=== PATIENT | male | born 1945 | race Caucasian/White ===

== ENCOUNTER 2017-09-09 09:42 | Emergency (ER) | payer MEDICARE, BC ==
[2017-09-09 10:13] VITALS: BP 159/82
[2017-09-09] MEDS ORDERED: Sodium Chloride 0.9% 10 ML Syringe FLUSH PRN (10:19)
[2017-09-09] MEDS ORDERED: HYDROmorphone 1 MG/ML Syringe IVPUSH ONE (10:19)
[2017-09-09 11:07] LABS: CHLORIDE,CL 106 mmol/L (98-107); SODIUM,NA 141 mmol/L (136-145)
--- NOTE | 2017-09-09 11:07 | EDM.PDOC ---
ED HPI GENERAL MEDICAL PROBLEM - General Chief Complaint: Lower Extremity Injury/Pain Time Seen by Provider: 09/09/17 09:42 Source of Information: Reports: Patient, EMS History Limitations: Reports: No Limitations - History of Present Illness INITIAL COMMENTS - FREE TEXT/NARRATIVE: Pt. slipped on ice while walking outside, outwardly turning his R foot and landing on his backside. Denies striking head or injuring neck during the fall. No LOC. EMS was summoned. Pt. only complaint is that of severe R distal lower leg pain. States that he did not have any chest pain or lightheadedness prior to the fall. Onset: Today Location: Reports: Lower Extremity, Right Severity: Severe Right Ankle Pain Score (Numeric/FACES): 8 - Related Data Allergies Allergy/AdvReac Type Severity Reaction Status Date / Time Cephalosporins Allergy Severe Anaphylactic Verified 09/09/17 10:07 Shock Sulfa (Sulfonamide Allergy Cannot Verified 09/09/17 10:07 Antibiotics) Remember Home Meds: Home Meds Furosemide [Lasix] 20 mg PO DAILY 06/08/15 [History] Simvastatin [Zocor] 20 mg PO BEDTIME 06/08/15 [History] Cholecalciferol (Vitamin D3) [Vitamin D3] 1,000 unit PO DAILY 04/03/16 [History] Multivitamin [Multivitamins] 1 each PO DAILY 04/03/16 [History] metFORMIN [Glucophage] 1 tab PO ASDIRECTED 04/03/16 [History] Past Medical History Cardiovascular History: Reports: High Cholesterol, Hypertension Psychiatric History: Reports: Anxiety, Other (See Below) Other Psychiatric History: History of anxiety symptoms in February 2015 Dermatologic History: Reports: Cellulitis, Other (See Below) Other Dermatologic History: History of cellulitis a couple times. - Past Surgical History Musculoskeletal Surgical History: Reports: Hip Replacement, Knee Replacement Social & Family History - Tobacco Use Smoking Status *Q: Never Smoker Years of Tobacco use: 10 Second Hand Smoke Exposure: Yes - Alcohol Use Days Per Week of Alcohol Use: 1 Number of Drinks Per Day: 0 Total Drinks Per Week: 0 - Recreational Drug Use Recreational Drug Use: No Review of Systems - Review of Systems Review Of Systems: See Below Constitutional: Reports: No Symptoms Eyes: Reports: No Symptoms Ears: Reports: No Symptoms Nose: Reports: No Symptoms Mouth/Throat: Reports: No Symptoms Respiratory: Reports: No Symptoms Cardiovascular: Reports: No Symptoms GI/Abdominal: Reports: No Symptoms Genitourinary: Reports: No Symptoms Musculoskeletal: Reports: Leg Pain Skin: Reports: No Symptoms Neurological: Reports: No Symptoms Psychiatric: Reports: No Symptoms ED EXAM, GENERAL - Physical Exam Exam: See Below Exam Limited By: No Limitations General Appearance: Alert, WD/WN, No Apparent Distress Head: Atraumatic, Normocephalic Neck: Normal Inspection, Supple, Non-Tender, Full Range of Motion Respiratory/Chest: No Respiratory Distress, Lungs Clear, Normal Breath Sounds, No Accessory Muscle Use, Chest Non-Tender Cardiovascular: Normal Peripheral Pulses, Regular Rate, Rhythm, No Edema, No Gallop, No JVD, No Murmur, No Rub GI/Abdominal: Normal Bowel Sounds, Soft, Non-Tender, No Organomegaly, No Distention, No Abnormal Bruit, No Mass (Male) Exam: Deferred Rectal (Males) Exam: Deferred Back Exam: Normal Inspection, Full Range of Motion, NT Extremities: Normal Inspection, No Pedal Edema, Normal Capillary Refill, Other ( Pain/deformity/crepitus to R ankle) Neurological: Alert, Oriented, CN II-XII Intact, Normal Cognition, Normal Gait, Normal Reflexes, No Motor/Sensory Deficits Psychiatric: Normal Affect, Normal Mood Skin Exam: Warm, Dry, Intact, Normal Color, No Rash Course - Vital Signs Last Recorded V/S: Last Vital Signs Temp 36.6 C 09/09/17 09:45 Pulse 67 09/09/17 09:45 Resp 18 09/09/17 09:45 BP 159/82 H 09/09/17 09:45 Pulse Ox - Orders/Labs/Meds Orders: Active Orders 24 hr Category Date Time Status Ankle Min 3V Rt [CR] Stat Exams 09/09/17 10:02 Taken COMPREHENSIVE METABOLIC PN,CMP [CHEM] Stat Lab 09/09/17 10:30 Received Sodium Chloride 0.9% [Saline Flush] Med 09/09/17 10:19 Active 10 ml FLUSH ASDIRECTED PRN Peripheral IV Insertion Adult [OM.PC] Routine Oth 09/09/17 10:19 Ordered Medication Orders Sodium Chloride (Saline Flush) 10 ml FLUSH ASDIRECTED PRN PRN Reason: Keep Vein Open Labs: Laboratory Tests 09/09/17 Range/Units 10:30 WBC 8.8 (4.0-10.0) x10^3/uL RBC 5.56 (4.5-6.0) x10^6/uL Hgb 16.1 D (14.0-18.0) g/dL Hct 47.0 (40.0-52.0) % MCV 84.5 (78.0-93.0) fL MCH 29.0 (26.0-32.0) pg MCHC 34.3 (32.0-36.0) g/dL RDW Coeff of [place] 17.9 H (10.0-15.0) % Plt Count 203 (130-400) x10^3/uL Neut % (Auto) 71.3 (50.0-80.0) % Lymph % (Auto) 15.0 L (25.0-50.0) % Haines % (Auto) 11.4 H (2.0-11.0) % Eos % (Auto) 1.8 (0.0-4.0) % Baso % (Auto) 0.5 (0.2-1.2) % Meds: Medications Generic Name Dose Route Start Last Admin Trade Name Freq PRN Reason Stop Dose Admin Sodium Chloride 10 ml 09/09/17 10:19 Saline Flush FLUSH ASDIRECTED PRN Keep Vein Open Discontinued Medications Generic Name Dose Route Start Last Admin Trade Name Freq PRN Reason Stop Dose Admin Hydromorphone HCl 1 mg 09/09/17 10:19 09/09/17 10:27 Dilaudid IVPUSH 09/09/17 10:20 1 mg ONETIME ONE Administration Departure - Departure Time of Disposition: 11:02 Disposition: DC/Tfer to Acute Hospital 02 Condition: Good Clinical Impression: Fracture of tibia AND fibula - Discharge Information Referrals: Ariadne Matamoros DO [Primary Care Provider] - Forms: ED Department Discharge, Interfacility Transfer EMTALA - My Orders Last 24 Hours: My Active Orders 09/09/17 10:02 Ankle Min 3V Rt [CR] Stat 09/09/17 10:19 Sodium Chloride 0.9% [Saline Flush] 10 ml FLUSH ASDIRECTED PRN Peripheral IV Insertion Adult [OM.PC] Routine 09/09/17 10:30 COMPREHENSIVE METABOLIC PN,CMP [CHEM] Stat - Assessment/Plan Last 24 Hours: My Active Orders 09/09/17 10:02 Ankle Min 3V Rt [CR] Stat 09/09/17 10:19 Sodium Chloride 0.9% [Saline Flush] 10 ml FLUSH ASDIRECTED PRN Peripheral IV Insertion Adult [OM.PC] Routine 09/09/17 10:30 COMPREHENSIVE METABOLIC PN,CMP [CHEM] Stat
== END 2017-09-09 11:05 | disposition short-term general hospital (02) ==
LOC: VM.ED 09:42
DX: S82.301A Unspecified fracture of lower end of right tibia, initial encounter for closed fracture (principal); S82.831A Other fracture of upper and lower end of right fibula, initial encounter for closed fracture; I10 Essential (primary) hypertension; Z88.2 Allergy status to sulfonamides; Z88.8 Allergy status to other drugs, medicaments and biological substances; Z79.899 Other long term (current) drug therapy; Z77.22 Contact with and (suspected) exposure to environmental tobacco smoke (acute) (chronic); W00.0XXA Fall on same level due to ice and snow, initial encounter
CPT/HCPCS: 36415; 73610; 80053; 85025; 96374; 99285; J1170

== ENCOUNTER 2021-08-22 17:35 | Emergency (ER) | payer MEDICARE, BC ==
[2021-08-22 18:22] VITALS: BP 125/71; PULSE 83
[2021-08-22 18:38] LABS: CHLORIDE,CL 103 mmol/L (98-107); SODIUM,NA 140 mmol/L (136-145)
[2021-08-22] MEDS ORDERED: Iopamidol 755 Mg/ML 100 ML Bottle IVPUSH ONE (19:29)
[2021-08-22] MEDS ORDERED: Potassium Chloride 10 MEQ Tab.ER PO ONE (20:16)
== END 2021-08-22 20:26 | disposition home or self-care (01) ==
LOC: VM.ED 17:35
DX: E87.6 Hypokalemia (principal); E78.00 Pure hypercholesterolemia, unspecified; I10 Essential (primary) hypertension; Z79.899 Other long term (current) drug therapy; Z88.2 Allergy status to sulfonamides; Z88.8 Allergy status to other drugs, medicaments and biological substances
CPT/HCPCS: 36415; 71046; 71275; 80053; 81001; 83880; 84484; 85025; 85379; 86140; 93005; 93010; 99284; 99285-25; A9270-GY; Q9967

== ENCOUNTER 2024-03-08 21:55 | Emergency (ER) | payer MEDICARE, BC ==
[2024-03-08 22:37] LABS: BASOPHILS PERCENT AUTO 0.3 % (0.2-1.2); EOSINOPHILS ABSOLUTE AUTO 0.2 x10^3/uL (0.0-0.5); EOSINOPHILS PERCENT AUTO 2.6 % (0.0-4.0); HEMATOCRIT 41.3 % (40.0-52.0); IMMATURE GRAN ABSOLUTE AUTO 0.02 x10^3/uL (0.00-0.07); LYMPHOCYTES ABSOLUTE AUTO 2.2 x10^3/uL (1.0-4.8); LYMPHOCYTES PERCENT AUTO 24.1 % (25.0-50.0); MEAN CORPUSCULAR HEMOGLOBIN 29.5 pg (26.0-32.0); MEAN CORPUSCULAR HGB CONC 33.9 g/dL (32.0-36.0); MEAN CORPUSCULAR VOLUME 86.9 fL (78.0-93.0); MONOCYTES ABSOLUTE AUTO 1.1 x10^3/uL (0.0-0.8); MONOCYTES PERCENT AUTO 12.1 % (2.0-11.0); NEUTROPHILS ABSOLUTE AUTO 5.6 x10^3/uL (1.8-7.7); NEUTROPHILS PERCENT AUTO 60.7 % (50.0-80.0); PLATELET COUNT,PLT 228 x10^3/uL (130-400); RED BLOOD CELL COUNT 4.75 x10^6/uL (4.5-6.0); WHITE BLOOD CELL COUNT,WBC 9.2 x10^3/uL (4.0-10.0)
[2024-03-08 22:49] LABS: CALCIUM 8.5 mg/dL (8.5-10.1); EST CRCL DRUG DOSING (CG) 63.59 mL/min; POTASSIUM,K 3.7 mmol/L (3.5-5.1)
[2024-03-08 22:51] LABS: ANION GAP 13.7 mmol/L (5-15)
[2024-03-09 00:40] VITALS: BP 115/61; PULSE 57
== END 2024-03-09 00:25 | disposition home or self-care (01) ==
LOC: VM.ED 21:55
DX: R07.9 Chest pain, unspecified (principal); R00.1 Bradycardia, unspecified; I10 Essential (primary) hypertension; E78.00 Pure hypercholesterolemia, unspecified; Z79.899 Other long term (current) drug therapy; Z88.1 Allergy status to other antibiotic agents; Z88.2 Allergy status to sulfonamides; Z88.8 Allergy status to other drugs, medicaments and biological substances
CPT/HCPCS: 71045; 80048; 84484; 85025; 93010; 99284; 99285